=== PATIENT | female | born 2000 | race Caucasian/White ===

== ENCOUNTER 2019-12-04 18:27 | Observation (INO) | payer OTHER, SELFPAY ==
[2019-12-04] VITALS (7 sets, daily range): BP systolic 107–132; BP diastolic 76–92; PULSE 55–88; RESP 16–19; TEMP 36.1–36.9; O2SAT 95–99; BMI 25.5
--- NOTE | 2019-12-04 18:44 | CT_ITS ---
STUDY: CT ABDOMEN AND PELVIS WITH CONTRAST REASON FOR EXAM: Female, 19 years old. ABDOMEN PAIN/RLQ,PREG TEST WAS NEG RADIATION DOSAGE (If Supplied By Facility): CTDIvol = ( 13.26 ) mGy, DLP = ( 708.15 ) mGycm TECHNIQUE: Transaxial images were obtained from the dome of the diaphragm to the symphysis pubis with oral contrast. Oral and amp; IV Gastrografin and amp; 100mL Isovue-300 was administered. Sagittal and coronal images were reconstructed. Individualized dose optimization techniques were used for this CT. COMPARISON: None. FINDINGS: The visualized lung bases are unremarkable. The visualized portions of the heart are within normal limits. Normal liver. Normal gallbladder and extrahepatic biliary system. Normal spleen. Normal pancreas. Normal bilateral adrenal glands. Normal right kidney. Normal left kidney. Normal visualized stomach. Normal small intestine. Normal colon. There is a structure which may represent appendix in the right pelvis measuring 7.1 mm in diameter. Normal abdominal aorta. Normal inferior vena cava. Normal retroperitoneum. Normal urinary bladder. The uterus appears normal. There are several small right ovarian cysts measuring up to 1.6 cm in diameter. There is a small amount of free fluid in the deep pelvis. There is a small fat-containing umbilical hernia. Normal osseous structures. CT/Abdomen/Pelvis WITH Contrast IMPRESSION: There are several small right ovarian cyst measuring up to 1.6 cm in diameter. A small amount of free fluid is present in the deep pelvis. There is a tubular structure of the right pelvis which may represent appendix, measuring 7.1 mm in diameter. I am not sure however if this represents a borderline dilated appendix. There is no evidence of surrounding fluid or inflammatory process. Early appendicitis cannot be excluded. Small fat-containing umbilical hernia. Electronically Signed: Derek Middleton MD at 21:00 EDT , Service support ,
[2019-12-04 19:22] LABS: Absolute Lymphocyte Count 2.14 X10^3/uL (0.83-4.51); Absolute Neutrophil Count 3.6 X10^3/uL (2.0-7.7); Basophil# 0.02 X10^3/uL; Basophil% 0.3 % (0-1); Eosinophil# 0.06 X10^3/uL; Eosinophils% 0.9 % (0-5); Hematocrit 39.2 % (37-47); Hemoglobin 13.2 g/dL (12.0-15.0); Lymphocyte # 2.14 X10^3/ul (4.0); Lymphocyte % 32.7 % (19-41); Mean Corp Hgb Conc 33.7 g/dL (32-36); Mean Corpuscular Hgb 30.3 pg (27.0-32.0); Mean Corpuscular Volume 89.9 fL (81-99); Mean Platelet Vol. 9.2 fl (6.2-12.0); Monocyte# 0.72 X10^3/uL; NRBC Flagged by Analyzer 0 % (0-5); Neutrophil % 54.9 % (47-70); Platelet Count 236 K/mm3 (150-450); RBC Distribution Width CV 11.9 % (11.6-14.6); RBC Distribution Width SD 38.5 fl (35.1-43.9); Red Blood Count 4.36 M/mm3 (4.2-5.4); White Blood Count 6.6 K/mm3 (4.4-11.0)
[2019-12-04 19:28] LABS: ALB/GLOB Ratio 1.2 RATIO (0.9-2.4); AST(SGOT) 17 U/L (15-37); Alanine Aminotransfer ALT/SGPT 19 U/L (13-56); Alkaline Phosphatase 65 U/L (45-117); Anion Gap 4 (5-15); BUN 9 mg/dL (7-18); BUN/Creat Ratio 11.4 RATIO (10-20); Calcium,Total 9.3 mg/dL (8.5-10.1); Chloride 110 mmol/L (98-107); Creatinine, Serum 0.79 mg/dL (0.55-1.02); EST Glomerular Filtration Rate 98 mL/min (>60); Est Glom Filt Rate - Afr Amer 119 mL/min (>60); Estimated Creatinine Clearance 102.22 ml/min; Globulin 3.4 g/dL (2.2-4.2); Glucose 114 mg/dL (74-106); Potassium 3.2 mmol/L (3.5-5.1); Protein, Total 7.4 g/dL (6.4-8.2); Sodium Level 142 mmol/L (136-145)
[2019-12-04 20:00] LABS: Internal QC Validated? YES +Cl - CLEAR BKGD
[2019-12-04 20:01] LABS: Pregnancy, Serum, hCG Quali. NEGATIVE Negative
[2019-12-04 21:01] LABS: Bacteria 0 SEEN /hpf (None Seen); Mucous, Urine 0 SEEN /hpf (<or=2+); Red Blood Cells-Urine 0 SEEN /hpf (0-5); White Blood Cells 0 SEEN /hpf (0-5)
--- NOTE | 2019-12-04 21:34 | PCM.CONS.GEN ---
Problem List (1) Acute appendicitis Status: Acute Qualifiers: Acute appendicitis type: with localized peritonitis Appendicitis gangrene presence: unspecified whether gangrene present Appendicitis perforation presence: without perforation Appendicitis abscess presence: without abscess Qualified Code(s): K35.30 - Acute appendicitis with localized peritonitis, without perforation or gangrene Reason for Consult Date of Consultation: 12/04/19 History of Present Illness: The patient is a 19 year old F who presents to the emergency department with right lower quadrant abdominal pain. Her pain started 2 days ago periumbilically and is localized to the right lower quadrant. Work-up in the emergency department showed a normal white count and a CAT scan of the abdomen and pelvis which showed: IMPRESSION: There are several small right ovarian cyst measuring up to 1.6 cm in diameter. A small amount of free fluid is present in the deep pelvis. There is a tubular structure of the right pelvis which may represent appendix, measuring 7.1 mm in diameter. I am not sure however if this represents a borderline dilated appendix. There is no evidence of surrounding fluid or inflammatory process. Early appendicitis cannot be excluded. Small fat-containing umbilical hernia. She has not been around anyone that is ill she is not complaining of any shortness of breath change in her taste buds or fevers. Past Medical History Allergies No Known Allergies Allergy (Verified 12/04/19 18:30) Surgical History: no surgical history Smoking Status: Never smoker - *Family History Maternal History Items: - - Family members tend to bleed after surgeries Review of Systems Constitutional: Reports: Anorexia, Malaise Cardiovascular: Denies: Chest Pain, Chest Pressure, Chest Tightness, Palpitations Respiratory: Denies: Cough, Hemoptysis, Shortness of breath at rest, Shortness of breath upon exertion, Wheezing Gastrointestinal: Reports: Abdominal Pain, Nausea Genitourinary: Denies: Dysuria, Frequency, Hematuria, Urgency Patient Problems: Active and Suspected Problems Acute appendicitis (Acute) - Physical Exam Vitals/I&O's: Vital Signs Temp Pulse Resp BP Pulse Ox 97.7 F L 75 18 132/92 H 98 12/04/19 18:28 12/04/19 18:28 12/04/19 18:28 12/04/19 18:28 12/04/19 18:28 Oxygen Delivery Method Room Air Weight: 153 lb 10.595 oz Body Mass Index (BMI) 25.5 Finger Stick Blood Glucose 91 General: Alert, Oriented x3 Lungs: Clear to auscultation Cardiovascular: Regular rate, Regular Rhythm, No murmurs Abdomen: Tender - Patient has a positive Rovsing sign, positive cough test, she has voluntary guarding. She has peritoneal irritation. Laboratory Results 12/04/19 18:50: WBC 6.6, RBC 4.36, Hgb 13.2, Hct 39.2, MCV 89.9, MCH 30.3, MCHC 33.7, RDW Std Deviation 38.5, RDW Coeff of Zhen 11.9, Plt Count 236, MPV 9.2, Immature Gran % (Auto) 0.200, Neut % (Auto) 54.9, Lymph % (Auto) 32.7, [place] % (Auto) 11.0 H, Eos % (Auto) 0.9, Baso % (Auto) 0.3, Absolute Neuts (auto) 3.6, Absolute Lymphs (auto) 2.14, Nucleated RBC % 0 12/04/19 18:50: Sodium 142, Potassium 3.2 L, Chloride 110 H, Carbon Dioxide 28.0, Anion Gap 4 L, BUN 9, Creatinine 0.79, Estim Creat Clear Calc 102.22, Est GFR (MDRD) Af Amer 119, Est GFR (MDRD) Non-Af 98, BUN/Creatinine Ratio 11.4, Glucose 114 H, Calcium 9.3, Total Bilirubin 0.50, AST 17, ALT 19, Alkaline Phosphatase 65, Total Protein 7.4, Albumin 4.0, Globulin 3.4, Albumin/Globulin Ratio 1.2 12/04/19 18:50: Serum , Qual NEGATIVE 12/04/19 20:55: Urine Color Pending, Urine Clarity Pending, Urine pH Pending, Ur Specific [place] Pending, Urine Protein Pending, Urine Glucose (UA) Pending, Urine Ketones Pending, Urine Occult Blood Pending, Urine Nitrite Pending, Urine Bilirubin Pending, Urine Urobilinogen Pending, Ur Leukocyte Esterase Pending, Urine RBC Pending, Urine WBC Pending, Ur Squamous Epith Cells Pending, Urine Bacteria Pending, Urine Mucus Pending Current Medications Piperacillin Sod/Tazobactam (Sod 3.375 gm/ Sodium Chloride) 50 mls @ 100 mls/hr IV X1 ONE Stop: 12/04/19 21:47 Assessment/Plan All Active Problems Acute appendicitis (Acute) My plan is to perform a laparoscopic appendectomy. Risk to include bleeding infection and possible delayed infections. Patient understands her could be injuries and possible need for recurrent surgeries. In addition blood clots heart attacks pneumonia strokes up to including pulmonary embolus have been discussed with the patient although they are low risk. All questions asked have been answered and they are willing to proceed. Procedure Criteria Procedure Type: Elective COVID Risk Discussion: The surgeon/proceduralist and patient have discussed in detail the risk of exposure to and/or potential harm posed by the COVID-19 virus with having a surgery/procedure at this time versus the risk of delaying the surgery/procedure. It is not possible to know either the risk of delaying the surgery or procedure or chance of getting an infection with perfect accuracy, but a joint decision was made between the patient and the surgeon/proceduralist to proceed at this time with the scheduled surgery/procedure as indicated on the consent form. Office Visits / Consults: [id number] Consult L3 - Modifier 57
[2019-12-04 21:35] LABS: Bedside Glucose 91 mg/dL (70-110)
[2019-12-04 21:44] LABS: Color, Urine Yellow (Yellow); Glucose, Dipstick Normal (Normal); Ketone-Dipstick Negative (Negative); Leukocyte Esterase-Dipstick Negative /ul (Negative); Nitrite-Dipstick Negative (Negative); Occult Blood-Urine Negative /ul (Negative); Protein-Dipstick Negative (Negative); Urine Bilirubin Dipstick Negative (Negative); Urine Clarity Sl. Cloudy (Clear); Urine Urobilinogen Normal (Normal)
[2019-12-04 22:02] LABS: Squamous Epithelial Cells - UA 0-5 SEEN /hpf (5-10)
--- NOTE | 2019-12-04 22:12 | ED.RN ---
report given to Joelle in OR. ready for patient.
--- NOTE | 2019-12-04 22:30 | APP_PTH ---
PATIENT: KACY JOHN LOC: PCU U#:[id number] AGE/SX: 19/F ROOM: [facility] RE12/04/[address]: Dr. Ellis Prince MD : 2000 BED: 1 DIS: 12/05/2019 SPEC #: [id number] RECD: 12/05/19 07:34 STATUS: JESSICA REQ #: [id number] PIERRE: 12/04/19 22:[address]: Ellis Prince DEPT: SURGICAL PATHOLOGY RECD BY: Celestine Nagel ENTERED: 12/05/19 08:10 SP TYPE: APPENDIX OTHR DR: Dr. Wilver Archer MD Tissues: Appendix, NOS Procedures: Surgery Specimen Level III HEADER OPERATION: Laparoscopic appendectomy PRE-OP DIAGNOSIS: Acute appendicitis TISSUE SUBMITTED: Appendix MICROSCOPIC DIAGNOSIS Appendix, appendectomy: Acute appendicitis. AM:juan antonio 12/06/19 MICROSCOPIC DESCRIPTION Slides are reviewed. GROSS DESCRIPTION Received is one container labeled with the patient's name and designated appendix. The specimen consists of an appendix measuring 6.5 cm in length and up to 0.7 cm in diameter. The attached periappendiceal adipose tissue measures up to 1.5 cm in width. The serosa is congested. No obvious perforation is identified. The lumen does not contain fecalith. [employer] sections are submitted in one cassette. / SJ:rg 12/05/19 TC:2 [facility]: [id number]
--- NOTE | 2019-12-04 22:34 | ED.DCSUM_ITS ---
- ER Visit Summary Date of Service: 12/04/19 Chief Complaint: Abdominal pain History of Present Illness: The patient is a 19 F presenting with abdominal pain. Patient states this started on Wednesday. She has pain in the right lower quadrant. She has associated nausea with no vomiting. She complains of s ubjective fever. She was seen at urgent care today and was sent to the ED for concern for appendicitis. Physical Examination: Vitals are stable. Patient is afebrile. Alert no acute distress. HEENT exam is unremarkable. Neck is supple. Lungs are clear and equal bilaterally. Heart is regular rate and rhythm. Abdomen is soft RLQ tenderness with no rebound or guarding. Extremities are unremarkable. Skin is warm and dry. Remainder of exam is unremarkable. Emergency Department Course and Treatment: Patient was given morphine, Zofran IV. CBC, chemistries unremarkable. Urinalysis unremarkable. hCG negative. CT abdomen pelvis shows there are several small right ovarian cyst measuring up to 1.6 cm in diameter. A small amount of free fluid is present in the deep pelvis. There is a tubular structure of the right pelvis which may represent appendix, measuring 7.1 mm in diameter. I am not sure however if this represents a bor derline dilated appendix. There is no evidence of surrounding fluid or inflammatory process. Early appendicitis cannot be excluded. Small fat- containing umbilical hernia. Patient was given Zosyn IV. Discussed with Dr. Prince who will evaluate the patient in the ED. Disposition: To OR Impression: Acute appendicitis This note was generated with [employer] dictation software. It may contain incorrect words, spelling, and punctuation that were not noted in review of the chart prior to signing ED Disposition - Plan for ED Patient: Disposition: Acute Care [facility]
--- NOTE | 2019-12-04 22:34 | PCM.OPRPT ---
Problem List (1) Acute appendicitis Status: Acute Qualifiers: Acute appendicitis type: with localized peritonitis Appendicitis gangrene presence: unspecified whether gangrene present Appendicitis perforation presence: without perforation Appendicitis abscess presence: without abscess Qualified Code(s): K35.30 - Acute appendicitis with localized peritonitis, without perforation or gangrene Report of Operation Date of Procedure: 12/04/19 Pre-Operative Diagnosis: Acute appendicitis Post-Operative Diagnosis: Same Surgery/Procedure Performed:: Laparoscopic appendectomy Type of Anesthesia:: General Anesthesiologist: Alexis Lomax Specimen's removed: Appendix Estimated Blood Loss (mL): < 25 cc Description of Procedure: Patient was brought into the operating room. Placed in the supine position. Under excellent general trach intubation the abdomen was sterilely prepped and draped in the usual fashion. Local was injected infraumbilically dissection was carried down to the fascia the fascia grasped with a Alicja varies needle was placed inside the abdomen the abdomen was insufflated to 15 torr. A 10/12 trocar was placed without difficulty. Patient was placed in the headdown position the suprapubic #5 trocar was placed in left lower quadrant #5 trocar was placed. Patient was noted to have acute appendicitis. I came down the mesoappendix with the Enseal. I had excellent hemostasis. I transected the base of the appendix with a 45 linear cutter. I placed a specimen specimen bag and delivered through the umbilical port without difficulty. I irrigated out the pelvis there was some turbid fluid it really was not purulent though. I reinspected the base the appendix I had good pneumostasis. I ran the small bowel there was no Meckel's diverticulum. Remove the trochars under direct visualization good mistakes this was noted. Closed the fascia the umbilical port with a [id number] stitch of 0 Vicryl. Skin incisions were closed with subcuticular stitches of 4-0 Monocryl. Steri-Strips were applied sterile dressings were applied and the patient tolerated the procedure well. - Admit VTE Documentation VTE Present on Admission: No VTE Mechan Device Prophylaxis: SCD's VTE Pharm Prophylaxis ordered?: No Reason prophylaxis not ordered:: Treatment Not Indicated [id number]: [id number] Laparoscopy appendectomy
[2019-12-04] MEDS: Bupivacaine Mpf 0.5% 30 ML VIAL (22:58)
[2019-12-04] MEDS: 0.9% Normal Saline 1,000 ML 75 ML IV (23:55)
[2019-12-05 00:05] VITALS: BMI 26.9; BMI 27.0
[2019-12-05] MEDS: oxyCODONE 5 MG Tablet PO ×4 (00:32→12:28)
[2019-12-05] MEDS: 0.9% Normal Saline 1,000 ML 75 ML IV (00:33)
[2019-12-05 00:45] VITALS: BP 109/67; PULSE 54; RESP 16; TEMP 36.9; O2SAT 98
[2019-12-05 02:45] VITALS: BP 96/58; PULSE 53; RESP 15; TEMP 36.6; O2SAT 98
[2019-12-05 04:45] VITALS: BP 104/63; PULSE 46; RESP 16; TEMP 36.7; O2SAT 98
[2019-12-05 08:24] VITALS: BP 101/62; PULSE 48; RESP 16; TEMP 36.7; O2SAT 98
--- NOTE | 2019-12-05 11:27 | DCINST_ITS ---
Discharge Diet: Light diet - advance as tolerated - if you have questions about your diet instructions, please talk to you doctor. Discharge Activity: May Not Drive - for 3-5 days or while taking narcotic pain meds. May shower in (days): 1 Call your doctor if your incision/area has: Continuous Slow Oozing, Sudden Increased Bleeding, Increased Pain/ Swelling, Increased Redness, Foul Smelling Discharge Call your doctor if you observe: Fever of 101 or Higher Suture Line Care: Avoid Pulling/Pushing, Avoid Pinching/Bending Additional Dressing/Incision Instructions:: Keep dressing clean and dry. Change or remove dressing in 2 days. Leave steri strips for 1 week. May protect with a gauze bandaid. Medications to take at Discharge Oxycodone HCl/Acetaminophen [Percocet 5/325] 1 - 2 tab PO Q4H PRN PRN 6 Days #30 tab 12/05/19 Allergies/Adverse Reactions: Allergies No Known Allergies Allergy (Verified 12/04/19 18:30) The following prescriptions were given: Oxycodone HCl/Acetaminophen [Percocet 5/325] 1 - 2 tab PO Q4H PRN PRN 6 Days #30 tab PRN Reason: Pain Prescription Printed Primary Care Physician: Wilver Archer MD [Primary Care Provider] - Test Results: Test results from this visit will be discussed in further detail at your follow- up appointment, if applicable. Please Follow Up With: Ellis Prince MD - [phone] When: Call to make a follow up appointment with your doctor in 1 week.
--- NOTE | 2019-12-05 12:14 | PHA.DC.MC ---
Addendum entered and electronically signed by Steff Viramontes 12/05/19 12:15: CORRECTION - PT COUNSELED ON OXYCODONE/ACETAMINOPHEN 5/325MG 1-2T PO Q4H PRN PAIN Original Note: Pharmacy Service has performed discharge medication reconciliation and counseling for this patient. 1. HYDROCODONE/ACETAMINOPHEN 5/325MG 1-2T PO Q4H PRN PAIN The patient's discharge medication list was reviewed for discrepancies and discrepancies were resolved. Home Medications Oxycodone HCl/Acetaminophen [Percocet 5/325] 1 - 2 tab PO Q4H PRN PRN 6 Days #30 tab 12/05/19 The patient was counseled on the following discharge medications and changes in medications for homegoing were reviewed. The Reason for Use, instructions for use, and potential side effects were reviewed for all new medications. The patient's questions regarding all of their medications were answered. The patient was able to verbally demonstrate an understanding of their discharge medications. Patient counseled by pharmacy aide, Lona.
== END 2019-12-05 11:27 | disposition home or self-care (01) ==
LOC: ED 19:21 → PCU 12-05 03:30
PROVIDERS: Admitting Provider Surgery; Emergency Provider Emergency Medicine; PCP Family Medicine; Visit Provider Surgery
PROC: 0DTJ4ZZ Resection of Appendix, Percutaneous Endoscopic Approach (ICD-10-PCS; CPT 44970; principal; 2019-12-04 22:30)
DX: K35.30 Acute appendicitis with localized peritonitis, without perforation or gangrene (principal)
CPT/HCPCS: 00840; 44970; 74177; 80053; 81001; 82962; 84703; 85025; 88304; 96361; 96365; 96366; 99218; 99284; J7030; Q9967; A4216; C1760; G0378; J2405

== ENCOUNTER → 2022-03-21 | Outpatient (CLI) | payer OTHER, SELFPAY ==
[2022-03-21 10:49] LABS: Absolute Lymphocyte Count 2.16 X10^3/uL (0.83-4.51); Absolute Neutrophil Count 3.2 X10^3/uL (2.0-7.7); Basophil# 0.03 X10^3/uL; Basophil% 0.5 % (0-1); Eosinophil# 0.06 X10^3/uL; Hemoglobin 15.1 g/dL (12.0-15.0); Lymphocyte # 2.16 X10^3/ul (0.83-4.51); Lymphocyte % 35.2 % (19-41); Mean Corp Hgb Conc 35.1 g/dL (32-36); Mean Corpuscular Hgb 31.1 pg (27.0-32.0); Mean Corpuscular Volume 88.7 fL (81-99); Mean Platelet Vol. 8.9 fl (6.2-12.0); Monocyte% 11.4 % (0-10); NRBC Flagged by Analyzer 0 % (0-5); Neutrophil # 3.18 X10^3/uL (2.7-7.7); Neutrophil % 51.7 % (47-70); Platelet Count 262 K/mm3 (150-450); RBC Distribution Width CV 11.7 % (11.6-14.6); RBC Distribution Width SD 37.1 fl (35.1-43.9); Red Blood Count 4.85 M/mm3 (4.2-5.4); White Blood Count 6.1 K/mm3 (4.4-11.0)
[2022-03-21 11:16] LABS: Anion Gap 3 (5-15); BUN 13 mg/dL (7-18); BUN/Creat Ratio 15.8 RATIO (10-20); Calcium,Total 9.2 mg/dL (8.5-10.1); Chloride 107 mmol/L (98-107); Creatinine, Serum 0.82 mg/dL (0.55-1.02); EST Glomerular Filtration Rate 91 mL/min (>60); Est Glom Filt Rate - Afr Amer 110 mL/min (>60); Glucose 86 mg/dL (74-106); Potassium 4.3 mmol/L (3.5-5.1); Sodium Level 138 mmol/L (136-145)
== END | disposition home or self-care (01) ==
PROVIDERS: PCP Family Medicine; Referring Provider Physician Assistant Surgical; Visit Provider Physician Assistant Surgical
DX: Z01.818 Encounter for other preprocedural examination (principal)
CPT/HCPCS: 36415; 80048; 85025